=== PATIENT | male | born 1990 | race Caucasian/White ===

== ENCOUNTER 2018-01-13 01:25 | Emergency (ER) | payer OTHER ==
--- OUTSIDE RECORDS SUMMARY | 2018-01-13 01:40 | XMS REPORT ---
:1990 External Reference #:[id number] Author Organization [facility] Address [address] [place] [address] Phone [phone] Care Team Providers Name Role Phone Shakira Parkinson NP Primary Care Physician Unavailable Payers Type Date Identification Numbers Payment Provider Subscriber Medicaid Expires: Policy Number: [id number] Medicaid/Computer Michael Quinones 2013 Science Group Name: 1 [address] PayID: [id number] [place] [address] Health Maintenance Effective: Policy Number: [employer] Option Michael Rangel (HMO) 03/31/2013 [id number] Stacie Expires: 01/28/2014 PayID: [id number] [address] [address] [place] [address] Commercial Effective: 01/29/2014 Policy Number: [place] [facility]-Man Michael Quinones [id number] Medicaid PayID: [id number] [address] [place] [address] Problems Description No Information Social History Type Date Description Comments Education Highest level completed, 12th grade Education Highest level completed, completed job [employer] for Vocational Degree naldo Lives With Grandmother Diet Healthy, Well Balanced Pets 1 cat Pets 1 dog Occupation Unemployed Hobbies Hunting Hobbies Fishing Hobbies Computers Cigarette Use Former Cigarette Smoker ETOH Use Rarely consumes alcohol Recreational Drug Use Regularly uses Marijuana Smoking Patient is a former smoker Daily Caffeine Does Not Consume Caffeine Enjoy Exercising Enjoys exercising no regular exercise Allergies, Adverse Reactions, Alerts Date Description Reaction Status Severity Comments 03/02/2013 NKDA active Medications Medication Date Status Form Strength Qnty SIG Indications Ordering Provider Vitamin D 12/26/ Active Capsules [id number] 8caps take 1 Shawnti R. 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 Guaifenesin-Co 01/22/ Hx Syrup 100-10mg/5 180ml 1-2 J06.9 Shakira goff 2015 - ML teaspoon , 09/13/ by mouth [facility]-C 2015 every 6 hours as needed cough Ibuprofen 06/04/ Hx Tablets 600mg 60tabs 1 three 799.51 Shakira Sheppard 2012 - times a , 09/13/ day as [facility]-C 2015 needed pain, take with food Focalin XR 03/02/ Hx Caps ER 15mg 90caps 1 po daily Shakira Sheppard 2012 - 24HR code b 09/13/ [facility]-C 2015 Medications Administered in Office Medication Date Status Form Strength Qnty SIG Indications Ordering Provider Varicella Administered Injection Shakira Sheppard Disease 995 [facility] Immunizations CPT Code Status Date Vaccine Lot # [id number] Given 03/19/2016 Tdap (Adacel) 52666 Given 11/30/2011 Menactra (meningococcal conjugate vaccine) 85610 Given 09/28/2007 Menactra (meningococcal conjugate vaccine) 20091 Given 03/03/2006 Tdap (Adacel) 06279 Given 04/10/1998 Inactivated Polio Vaccine, Injectable (Ipol) 72376 Given 04/10/1998 MMR (Measles,Mumps,Rubella) 40955 Given 04/10/1998 DTaP (Daptacel) 43394 Given 04/20/1994 DTaP (Daptacel) 93698 Given 04/20/1994 Inactivated Polio Vaccine, Injectable (Ipol) 30809 Given 02/12/1994 Hib (Hemophilus Influenza B) (Acthib) 10830 Given 02/12/1994 MMR (Measles,Mumps,Rubella) 69074 Given 11/30/1993 Hep B Vaccine, Ped/Adol Dose 3 Dose (Engerix or Recombivax) 57603 Given 05/13/1993 DTaP (Daptacel) 97637 Given 05/13/1993 Hib (Hemophilus Influenza B) (Acthib) 96739 Given 03/27/1993 Inactivated Polio Vaccine, Injectable (Ipol) 77209 Given 03/27/1993 DTaP (Daptacel) 34188 Given 03/27/1993 Hib (Hemophilus Influenza B) (Acthib) 54081 Given 01/14/1993 Hep B Vaccine, Ped/Adol Dose 3 Dose (Engerix or Recombivax) 78884 Given 01/14/1993 Inactivated Polio Vaccine, Injectable (Ipol) 57823 Given 01/14/1993 DTaP (Daptacel) 00328 Given 01/14/1993 Hib (Hemophilus Influenza B) (Acthib) 14543 Given 1992 Hep B Vaccine, Ped/Adol Dose 3 Dose (Engerix or Recombivax) 06828 Refused 12/26/2017 Influenza Virus Vaccine, Quadrivalent, 3 Yr > Quad, Preserv Free 45538 Refused 10/17/2017 HPV Vaccine, Gardasil 56886 Refused 10/17/2017 Influenza Virus Vaccine, Quadrivalent, 3 Yr > Quad, Preserv Free 19527 Refused 01/23/2016 Influenza Virus Vaccine, Quadrivalent, 3 Yr > Quad, Preserv Free Vital Signs Date Vital Result Comment 12/26/2017 Weight 248.00 lb Weight in kg's 112.493 BP Systolic 117 mmHg BP Diastolic 79 mmHg Heart Rate 88 /min Body Temperature 97.5 F Height 73 inches 6'1" BMI (Body Mass Index) 32.7 kg/m2 O2 % BldC Oximetry 98 % 10/17/2017 Weight 249.00 lb Weight in kg's 112.946 BP Systolic 128 mmHg BP Diastolic 70 mmHg Heart Rate 72 /min Body Temperature 98.5 F Respiratory Rate 16 /min O2 % BldC Oximetry 98 % 09/07/2017 Weight 248.00 lb Weight in kg's 112.493 BP Systolic 120 mmHg BP Diastolic 68 mmHg Heart Rate 80 /min Body Temperature 98.2 F O2 % BldC Oximetry 98 % 10/14/2016 Weight 239.00 lb Weight in kg's 108.410 BP Systolic 120 mmHg BP Diastolic 60 mmHg Heart Rate 80 /min 09/13/2016 Weight 240.00 lb Weight in kg's 108.864 BP Systolic 110 mmHg BP Diastolic 70 mmHg Heart Rate 52 /min Body Temperature 98.6 F Respiratory Rate 12 /min 03/22/2016 Weight 250.00 lb Weight in kg's 113.400 BP Systolic 130 mmHg BP Diastolic 65 mmHg Heart Rate 90 /min O2 % BldC Oximetry 97 % 01/23/2016 Weight 246.00 lb Weight in kg's 111.586 BP Systolic 106 mmHg BP Diastolic 72 mmHg Heart Rate 88 /min Body Temperature 98.2 F O2 % BldC Oximetry 96 % 04/28/2015 Weight 260.00 lb Weight in kg's 117.936 BP Systolic 114 mmHg BP Diastolic 70 mmHg Heart Rate 68 /min Height 73.5 inches 6'1.50" BMI (Body Mass Index) 33.8 kg/m2 04/26/2014 Weight 239.00 lb Weight in kg's 108.410 BP Systolic 106 mmHg BP Diastolic 66 mmHg Heart Rate 76 /min Height 73.25 inches 6'1.25" BMI (Body Mass Index) 31.3 kg/m2 06/04/2013 Weight 224.00 lb Weight in kg's 101.606 BP Systolic 130 mmHg BP Diastolic 64 mmHg Heart Rate 80 /min Height 73.5 inches 6'1.50" BMI (Body Mass Index) 29.1 kg/m2 03/02/2013 Weight 228.00 lb Weight in kg's 103.421 BP Systolic 128 mmHg BP Diastolic 68 mmHg Heart Rate 90 /min Height 73.50 inches 6'1.50" BMI (Body Mass Index) 29.7 kg/m2 Results Test Date Test Result H/L Range Note Order 12/26/2017 EKG <pending> Laboratory test 10/17/2017 TSH (Thyroid 2.49 mcIU/mL 0.34-5.60 1 finding Stim Horm) Vitamin B12 448 pg/mL 180-914 2 Vitamin D Total 25(Oh) 14.3 ng/mL Low 20-50 3 Adrenal 21-Hydroxylase <1 U/mL <1 4 CBC Auto Diff 10/17/2017 White Blood Count 10.9 10^3/uL High 3.5-10.8 Red Blood Count 5.03 10^6/uL 4.0-5.4 Hemoglobin 15.5 g/dL 14.0-18.0 Hematocrit 46 % 42-52 Mean Corpuscular Volume 92 fL 80-94 Mean Corpuscular Hemoglobin 31 pg 27-31 Mean Corpuscular HGB Conc 34 g/dL 31-36 Red Cell Distribution Width 13 % 10.5-15 Platelet Count 246 10^3/uL 150-450 Mean Platelet Volume 10 um3 7.4-10.4 Abs Neutrophils 7.0 10^3/uL 1.5-7.7 Abs Lymphocytes 2.9 10^3/uL 1.0-4.8 Abs Monocytes 0.7 10^3/uL 0-0.8 Abs Eosinophils 0.1 10^3/uL 0-0.6 Abs Basophils 0.1 10^3/uL 0-0.2 Abs Nucleated RBC 0 10^3/uL Granulocyte % 64.8 % 38-83 Lymphocyte % 26.4 % 25-47 Monocyte % 6.9 % 1-9 Eosinophil % 1.3 % 0-6 Basophil % 0.6 % 0-2 Nucleated Red Blood Cells % 0 Lipid Profile (Trig/Chol/HDL) 10/17/2017 Triglycerides 214 mg/dL 5 Cholesterol 190 mg/dL 6 HDL Cholesterol 28.2 mg/dL 7 LDL Cholesterol 119 mg/dL 8 Comp Metabolic Panel 10/17/2017 Sodium 137 mmol/L 133-145 Potassium 4.3 mmol/L 3.5-5.0 Chloride 103 mmol/L 101-111 Co2 Carbon Dioxide 26 mmol/L 22-32 Anion Gap 8 mmol/L 2-11 Glucose 81 mg/dL 70-100 Blood Urea Nitrogen 14 mg/dL 6-24 Creatinine 0.83 mg/dL 0.67-1.17 BUN/Creatinine Ratio 16.9 8-20 Calcium 9.8 mg/dL 8.6-10.3 Total Protein 7.1 g/dL 6.4-8.9 Albumin 4.6 g/dL 3.2-5.2 Globulin 2.5 g/dL 2-4 Albumin/Globulin Ratio 1.8 1-3 Total Bilirubin 0.40 mg/dL 0.2-1.0 Alkaline Phosphatase 125 U/L High 34-104 Alt 54 U/L High 7-52 Ast 22 U/L 13-39 Egfr Non- 113.8 >60 Egfr 146.4 >60 9 Laboratory test finding 09/07/2017 Strep Screen Neg Neg Flu Test A, B, Or A & B,Binaxn 09/07/2017 Influenza A Antigen neg Influenza B Antigen neg 1 [id number] 2 Normal Range 180 to 914 Indeterminate Range 145 to 180 Deficient Range <145 3 [id number] 4 Test Performed by: [facility] [address] [place] [address] 5 Desirable: <150 Borderline High: 150-199 High: 200-499 Very High: >500 6 Desirable: <200 Borderline High: 200-239 High: >239 7 Low: <40 Desirable: 40-60 High: >60 8 Desirable: <100 Near Optimal: 100-129 Borderline High: 130-159 High: 160-189 Very High: >189 9 Because ethnic data is not always readily available, this report includes an eGFR for both -Americans and non- Americans. The National Kidney Disease Education Program (NKDEP) does not endorse the use of the MDRD equation for patients that are not between the ages of 18 and 70, are , have extremes of body size, muscle mass, or nutritional status, or are non- or non-. According to the National Kidney Foundation, irrespective of diagnosis, the stage of the disease is based on the level of kidney function: Stage Description GFR(mL/min/1.73 m(2)) 1 Kidney damage with normal or decreased GFR 90 2 Kidney damage with mild decrease in GFR 60-89 3 Moderate decrease in GFR 30-59 4 Severe decrease in GFR 15-29 5 Kidney failure <15 (or dialysis) Procedures Date CPT Code Description Status 12/26/2017 29029 EKG, at Least 12 Leads w/Interpretation and Report Completed Encounters Type Date Location Provider CPT E/M Dx Office Visit 10/17/2017 1:30p Main Office Mine Smith, HARDEEP [address]157 Z00.00 Z13.6 R41.840 M25.561 Office Visit 09/07/2017 11:45a Main Office Bhanu Walker M.D. 42321 J06.9 Office Visit 10/14/2016 2:30p Main Office Shakira Parkinson [facility] 86474 F90.0 J30.9 Office Visit 09/13/2016 11:30a Main Office Shakira Parkinson, [facility]-C 86061 F90.0 Office Visit 03/22/2016 3:30p Main Office Shakira Parkinson [facility] 31452 S66.011D S20.219D Office Visit 01/23/2016 11:30a Main Office Shakira Parkinson [facility] 95347 F90.0 J06.9 Office Visit 04/28/2015 11:00a Main Office Shakira Parkinson [facility] 38054 V70.0 Office Visit 04/26/2014 1:30p Main Office Shakira Parkinson, [facility]-C 10276 V70.0 314.00 Office Visit 06/04/2013 2:30p Main Office Shakira Parkinson, [facility]C 50763 799.51 724.5 Office Visit 03/02/2013 9:00a Main Office Shakira Parkinson [facility] 62812 V70.0 799.51 Plan of Care Future Appointment(s):01/23/2018 4:15 pm - Shakira Parkinson [facility] at Main [facility]12/26/2017 - ANA Monae-CR07.9 Chest pain, unspecifiedComments: normal EKG, reports of transient chest pain with tachycardia, will refer to cardiology for further evaluationFollow up:refer to [id number] Paroxysmal tachycardia, widnaavwofoZ75.9 Vitamin D deficiency, unspecifiedComments:will treat with high dose vitamin D, Hopefully this will improve his joint pains.Follow up:1 month
[2018-01-13] MEDS ORDERED: Aspirin TAB* 325 MG PO ONE (02:42)
[2018-01-13] MEDS ORDERED: Ketorolac INJ* 30 MG/ML 1 ML VIAL IM ONE (02:42)
[2018-01-13 04:00] LABS: ABS Basophils 0.1 10^3/ul (0-0.2); ABS Eosinophils 0.2 10^3/ul (0-0.6); ABS Monocytes 0.8 10^3/ul (0-0.8); ABS Neutrophils 5.8 10^3/ul (1.5-7.7); ABS Nucleated RBC 0 10^3/ul; Eosinophil % 1.6 % (0-6); Hematocrit 46 % (42-52); Hemoglobin 15.8 g/dl (14.0-18.0); Lymphocyte % 36.6 % (25-47); Mean Corpuscular HGB Conc 34 g/dl (31-36); Mean Corpuscular Hemoglobin 31 pg (27-31); Mean Corpuscular Volume 91 fL (80-94); Mean Platelet Volume 10 um3 (7.4-10.4); Nucleated Red Blood Cells % 0.1; Platelet Count 237 10^3/ul (150-450); Red Blood Count 5.08 10^6/ul (4.0-5.4); Red Cell Distribution Width 13 % (10.5-15); White Blood Count 10.8 10^3/ul (3.5-10.8)
[2018-01-13 04:16] LABS: EGFR Non-African American 108.4 (>60)
[2018-01-13 05:11] VITALS: BP 138/71
--- NOTE | 2018-01-13 07:32 | ED ---
Yina Garibay Gabriel, scribed for Mauri Roach MD on 01/13/18 at 0241 . HPI Chest Pain - HPI Summary HPI Summary: This patient is a 27 year old M presenting to [facility] accompanied by his mother with a chief complaint of CP that began 2 months ago but was worse at 1300 today. Pt states pain worsened with PT this afternoon, however he was able to complete PT with the pain. The patient rates the pain 6/10 in severity and states it radiates into his back and LUE. Symptoms aggravated by movement. Patient reports SOB. Patient denies nausea, light headedness, and dizziness. Pt has seen his PCP and has a cardiology appointment on 01-16-18. - History of Current Complaint Chief Complaint: EDChestPainROMI Time Seen by Provider: 01/13/18 02:15 Hx Obtained From: Patient Onset/Duration: Started Weeks Ago - 4 Timing: Constant Initial Severity: Moderate Current Severity: Moderate Pain Intensity: 6 Pain Scale Used: 0-10 Numeric Chest Pain Radiates: Yes Chest Pain Radiates To:: Back, Arm - left Aggravating Factor(s): Exertion, Movement Alleviating Factor(s): Nothing Associated Signs and Symptoms: Positive: Anxiety, Recent Stress, Tingling, Dizziness, Lightheadedness, Diaphoresis - Risk Factors Pulmonary Embolism Risk Factors: Negative - Allergy/Home Medications Allergies/Adverse Reactions: Allergies Allergy/AdvReac Type Severity Reaction Status Date / Time No Known Allergies Allergy Verified 01/13/18 01:35 PMH/Surg Hx/FS Hx/Imm Hx Endocrine/Hematology History: Denies: Hx Diabetes, Hx Thyroid Disease Cardiovascular History: Denies: Hx Hypercholesterolemia, Hx Hypertension, Hx Pacemaker/ICD, Hx Peripheral Vascular Disease Respiratory History: Denies: Hx Asthma History: Denies: Hx Renal Disease Musculoskeletal History: Denies: Hx Arthritis, Hx Rheumatoid Arthritis, Hx Osteoporosis Sensory History: Denies: Hx Cataracts, Hx Contacts or Glasses, Hx Glaucoma, Hx Hearing Aid Opthamlomology History: Denies: Hx Cataracts, Hx Contacts or Glasses, Hx Glaucoma Neurological History: Denies: Hx Headaches, Hx Seizures, Hx Transient Ischemic Attacks (TIA) Psychiatric History: Denies: Hx Anxiety, Hx Depression, Hx Panic Disorder - Surgical History Surgery Procedure, Year, and Place: RHINOPLASTY ; Infectious Disease History: No Infectious Disease History: Denies: Traveled Outside the [place] in Last 30 Days - Family History Known Family History: Positive: Cardiac Disease, Hypertension, Diabetes, Other - HLD - Social History Lives: With Family Alcohol Use: None Substance Use Type: Reports: None Smoking Status (MU): Never Smoked Tobacco Review of Systems Positive: Chest Pain Positive: Shortness Of Breath Negative: Nausea Neurological: Negative - dizziness and light headedness All Other Systems Reviewed And Are Negative: Yes Physical Exam - Summary Physical Exam Summary: Appearance: Well-appearing, no distress, Well-nourished Skin: Warm, color reflects adequate perfusion Head: Normal Head/Face inspection Eyes: Conjunctiva clear ENT: Normal inspection Neck: Supple, no nodes, no JVD. Respiratory: Lungs clear, Normal breath sounds, no respiratory distress Cardio: RRR, No murmur, pulses normal, brisk capillary refill Abdomen: soft, nontender, no guarding, no rebound Bowel sounds: present Musculoskeletal: Strength Intact/ ROM intact. No calf tenderness. No edema. reproducible, mid midsternal chest discomfort on palpation Neuro: Alert, muscle tone normal, facial symmetry, speech normal, sensory/motor intact Psychological: Normal Triage Information Reviewed: Yes Vital Signs On Initial Exam: Initial Vitals Temp Pulse Resp BP Pulse Ox 98.5 F 93 18 147/77 98 01/13/18 01:33 01/13/18 01:33 01/13/18 01:33 01/13/18 01:33 01/13/18 01:33 Vital Signs Reviewed: Yes Diagnostics - Vital Signs Vital Signs Temp Pulse Resp BP Pulse Ox 01/13/18 01:33 98.5 F 93 18 147/77 98 - Laboratory Lab Results: Lab Results 01/13/18 01/13/18 01/13/18 Range/Units 03:43 03:43 03:43 WBC 10.8 (3.5-10.8) 10^3/ul RBC 5.08 (4.0-5.4) 10^6/ul Hgb 15.8 (14.0-18.0) g/dl Hct 46 (42-52) % MCV 91 (80-94) fL MCH 31 (27-31) pg MCHC 34 (31-36) g/dl RDW 13 (10.5-15) % Plt Count 237 (150-450) 10^3/ul MPV 10 (7.4-10.4) um3 Neut % (Auto) 53.6 (38-83) % Lymph % (Auto) 36.6 (25-47) % [place] % (Auto) 7.6 H (0-7) % Eos % (Auto) 1.6 (0-6) % Baso % (Auto) 0.6 (0-2) % Absolute Neuts (auto) 5.8 (1.5-7.7) 10^3/ul Absolute Lymphs (auto) 4.0 (1.0-4.8) 10^3/ul Absolute Monos (auto) 0.8 (0-0.8) 10^3/ul Absolute Eos (auto) 0.2 (0-0.6) 10^3/ul Absolute Basos (auto) 0.1 (0-0.2) 10^3/ul Absolute Nucleated RBC 0 10^3/ul Nucleated RBC % 0.1 D-Dimer, Quantitative (Less Than 230) ng/mL Sodium 137 (133-145) mmol/L Potassium 3.7 (3.5-5.0) mmol/L Chloride 101 (101-111) mmol/L Carbon Dioxide 27 (22-32) mmol/L Anion Gap 9 (2-11) mmol/L BUN 15 (6-24) mg/dL Creatinine 0.86 (0.67-1.17) mg/dL Est GFR ( Amer) 139.3 (>60) Est GFR (Non-Af Amer) 108.4 (>60) BUN/Creatinine Ratio 17.4 (8-20) Glucose 83 (70-100) mg/dL Calcium 10.2 (8.6-10.3) mg/dL Total Bilirubin 0.50 (0.2-1.0) mg/dL AST 22 (13-39) U/L ALT 55 H (7-52) U/L Alkaline Phosphatase 97 (34-104) U/L Troponin I 0.00 (<0.04) ng/mL B-Natriuretic Peptide 7 ( - 100) pg/mL Total Protein 7.7 (6.4-8.9) g/dL Albumin 4.9 (3.2-5.2) g/dL Globulin 2.8 (2-4) g/dL Albumin/Globulin Ratio 1.8 (1-3) 01/13/18 Range/Units 03:43 WBC (3.5-10.8) 10^3/ul RBC (4.0-5.4) 10^6/ul Hgb (14.0-18.0) g/dl Hct (42-52) % MCV (80-94) fL MCH (27-31) pg MCHC (31-36) g/dl RDW (10.5-15) % Plt Count (150-450) 10^3/ul MPV (7.4-10.4) um3 Neut % (Auto) (38-83) % Lymph % (Auto) (25-47) % [place] % (Auto) (0-7) % Eos % (Auto) (0-6) % Baso % (Auto) (0-2) % Absolute Neuts (auto) (1.5-7.7) 10^3/ul Absolute Lymphs (auto) (1.0-4.8) 10^3/ul Absolute Monos (auto) (0-0.8) 10^3/ul Absolute Eos (auto) (0-0.6) 10^3/ul Absolute Basos (auto) (0-0.2) 10^3/ul Absolute Nucleated RBC 10^3/ul Nucleated RBC % D-Dimer, Quantitative < 200 (Less Than 230) ng/mL Sodium (133-145) mmol/L Potassium (3.5-5.0) mmol/L Chloride (101-111) mmol/L Carbon Dioxide (22-32) mmol/L Anion Gap (2-11) mmol/L BUN (6-24) mg/dL Creatinine (0.67-1.17) mg/dL Est GFR ( Amer) (>60) Est GFR (Non-Af Amer) (>60) BUN/Creatinine Ratio (8-20) Glucose (70-100) mg/dL Calcium (8.6-10.3) mg/dL Total Bilirubin (0.2-1.0) mg/dL AST (13-39) U/L ALT (7-52) U/L Alkaline Phosphatase (34-104) U/L Troponin I (<0.04) ng/mL B-Natriuretic Peptide ( - 100) pg/mL Total Protein (6.4-8.9) g/dL Albumin (3.2-5.2) g/dL Globulin (2-4) g/dL Albumin/Globulin Ratio (1-3) Result Diagrams: 01/13/18 03:43 01/13/18 03:43 Lab Statement: Any lab studies that have been ordered have been reviewed, and results considered in the medical decision making process. - Radiology CXR Radiology Interpretation Completed By: ED Physician - No acute cardiopulmonary process - EKG 0123 Cardiac Rate: NL EKG Rhythm: Sinus Rhythm - at 75 BPM EKG Interpretation: normal intervals, normal axis, T wave normal, no ST/T wave changes Re-Evaluation - Re-Evaluation First Eval Change: Improved - Pt chest pain resolved. pt resting comfortably in bed. Pt HEART score - 0; pt symptoms atypical in nature. Chest Pain Course/Dx - Chest Pain Differential Diagnosis/HQI/PQRI: Acute [place], ACS, Angina, CHF, Lower Respiratory Infection, Pulmonary Edema, Pulmonary Embolism - Diagnoses Provider Diagnoses: Atypical chest pain Discharge - Discharge Plan Condition: Improved Disposition: HOME Prescriptions: Ketorolac TAB * [Toradol TAB *] 10 mg PO Q6H PRN 3 Days #10 tab PRN Reason: Pain Patient Education Materials: Chest Pain (ED) Referrals: Shakira Parkinson, [facility] [Primary Care Provider] - 2 Days Additional Instructions: Please follow up at your Cardiology appointment as scheduled. The documentation as recorded by the Yina gann Gabriel accurately reflects the service I personally performed and the decisions made by , Mauri Roach MD.
--- NOTE | 2018-01-13 08:16 | RAD ---
INDICATION: Chest pain. COMPARISON: There are no prior studies available for comparison. TECHNIQUE: Dual-energy PA and lateral views of the chest were obtained. FINDINGS: The heart is within normal limits in size. Mediastinal and hilar contours appear within normal limits. The lungs are clear. No pleural effusion or pneumothorax is seen. IMPRESSION: NO EVIDENCE FOR ACTIVE CARDIOPULMONARY DISEASE.
== END 2018-01-13 05:08 | disposition home or self-care (01) ==
LOC: ED 01:25
DX: R07.89 Other chest pain (principal); R06.02 Shortness of breath; R42 Dizziness and giddiness
CPT/HCPCS: 36415; 71046; 80053; 83880; 84484; 85025; 85379; 93005; 96372; 99284; J1885

== ENCOUNTER → 2019-03-22 16:17 | Emergency (ER) | payer OTHER ==
--- NOTE | 2019-03-22 17:40 | ED ---
Skin Complaint - HPI Summary HPI Summary: 28-year-old male presents with rash to his abdomen. States he was at work prior to arrival and felt a burning sensation to his abdomen and when he checked he noticed a rash. 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 Denies fever , chills, swelling of the lips, tongue, or throat, difficulty breathing, changes in soaps, detergents, lotions, medications, diet, or any known contact with environmental irritants. - History of Current Complaint Chief Complaint: EDRashSkinAbscess Time Seen by Provider: 03/22/19 17:30 Stated Complaint: "RASH ON ABDOMEN PER PT" Hx Obtained From: Patient Pain Intensity: 6 - Allergy/Home Medications Allergies/Adverse Reactions: Allergies Allergy/AdvReac Type Severity Reaction Status Date / Time No Known Allergies Allergy Verified 03/22/19 16:24 PMH/Surg Hx/FS Hx/Imm Hx Previously Healthy: Yes - Denies significant PMH Endocrine/Hematology History: Denies: Hx Diabetes, Hx Thyroid Disease Cardiovascular History: Denies: Hx Hypercholesterolemia, Hx Hypertension, Hx Pacemaker/ICD, Hx Peripheral Vascular Disease Respiratory History: Denies: Hx Asthma History: Denies: Hx Renal Disease Musculoskeletal History: Denies: Hx Arthritis, Hx Rheumatoid Arthritis, Hx Osteoporosis Sensory History: Denies: Hx Cataracts, Hx Contacts or Glasses, Hx Glaucoma, Hx Hearing Aid Opthamlomology History: Denies: Hx Cataracts, Hx Contacts or Glasses, Hx Glaucoma Neurological History: Denies: Hx Headaches, Hx Seizures, Hx Transient Ischemic Attacks (TIA) Psychiatric History: Denies: Hx Anxiety, Hx Depression, Hx Panic Disorder - Surgical History Surgery Procedure, Year, and Place: RHINOPLASTY ; Infectious Disease History: No Infectious Disease History: Denies: Traveled Outside the [place] in Last 30 Days - Family History Known Family History: Positive: Cardiac Disease, Hypertension, Diabetes, Other - HLD - Social History Occupation: Unemployed Lives: With Family Alcohol Use: None Substance Use Type: Reports: None Smoking Status (MU): Never Smoked Tobacco Review of Systems Negative: Fever, Chills Cardiovascular: Negative Respiratory: Negative Gastrointestinal: Negative Genitourinary: Negative Musculoskeletal: Negative Positive: Rash - See HPI All Other Systems Reviewed And Are Negative: Yes Physical Exam - Summary Physical Exam Summary: GENERAL APPEARANCE: Well developed, well nourished, alert and cooperative, and appears to be in no acute distress. CARDIAC: Normal S1 and S2. No S3, S4 or murmurs. Rhythm is regular. There is no peripheral edema, cyanosis or pallor. Extremities are warm and well perfused. Capillary refill is less than 2 seconds. Peripheral pulses intact. LUNGS: Clear to auscultation without rales, rhonchi, wheezing or diminished breath sounds. ABDOMEN: Positive bowel sounds. Soft, nondistended, nontender. No guarding or rebound. No masses or hepatosplenomegally. MUSKULOSKELETAL: ROM intact to all extremities. No joint erythema or tenderness. Normal muscular development. Normal gait. SKIN: Maculaopapular rash localized to the mid lower abdomen. Triage Information Reviewed: Yes Vital Signs On Initial Exam: Initial Vitals Temp Pulse Resp BP Pulse Ox 98.1 F 94 18 145/75 95 03/22/19 16:22 03/22/19 16:22 03/22/19 16:22 03/22/19 16:22 03/22/19 16:22 Vital Signs Reviewed: Yes Diagnostics - Vital Signs Vital Signs Temp Pulse Resp BP Pulse Ox 03/22/19 16:22 98.1 F 94 18 145/75 95 - Laboratory Lab Statement: Any lab studies that have been ordered have been reviewed, and results considered in the medical decision making process. Course/Dx - Course Course Of Treatment: 28-year-old male presents with rash to his abdomen. States he was at work prior to arrival and felt a burning sensation to his abdomen and when he checked he noticed a rash. 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 Denies fever, chills, swelling of the lips, tongue, or throat, difficulty breathing, changes in soaps, detergents, lotions, medications, diet, or any known contact with environmental irritants. Afebrile. Vital signs stable. Patient has a macular papular rash localized to his mid lower abdomen and otherwise unremarkable exam. Recommending treatment for a contact dermatitis with clobetasol ointment twice a day until clear. He is to follow- up with his primary care provider in 3-5 days if symptoms are not improving. Anticipatory guidance and warning symptoms were reviewed with the patient. Verbalizes understanding and agrees with plan of care. - Differential Diagnoses - Skin Complaint Differential Diagnoses: Cellulitis, Contact Dermatitis, Drug Rash, Local Allergic Reaction, Tinea - Diagnoses Provider Diagnoses: Contact dermatitis Discharge - Sign-Out/Discharge Documenting (check all that apply): Patient Departure Patient Received Moderate/Deep Sedation with Procedure: No - Discharge Plan Condition: Stable Disposition: HOME Prescriptions: Clobetasol 0.05% OINT* 1 applic TOPICAL BID #1 tube Patient Education Materials: Contact Dermatitis (ED) Forms: *Work Release Referrals: Shakira Parkinson NP [Primary Care Provider] - 3 Days Additional Instructions: Your history and exam are consistent with a contact dermatitis. Use clobetasol ointment twice a day to the affected area until clear. Do not use for more than 2 weeks. Follow up with your primary care provider in 3-5 days if no improvement in symptoms. Return to the emergency room if you develop fever greater than 100.5 F, swelling of the lips, tongue, or throat, difficulty breathing, or any worsening of symptoms. - Billing Disposition and Condition Condition: STABLE Disposition: Home
[2019-03-22 18:11] VITALS: BP 138/70
== END | disposition home or self-care (01) ==
LOC: ED 16:17
DX: L25.9 Unspecified contact dermatitis, unspecified cause (principal)
CPT/HCPCS: 99282

== ENCOUNTER 2019-04-04 13:59 | Emergency (ER) | payer OTHER ==
--- OUTSIDE RECORDS SUMMARY | 2019-04-04 14:11 | XMS REPORT | Continuity of Care Document ---
:1990 External Reference #:[id number] Author Name Rain Mclaughlin Care Team Providers Name Role Phone AB Monae Care Team Information Drugless Doctor Unavailable Payers Date Identification Numbers Payment Provider Subscriber Expires: 2013 Policy Number: [id number] Medicaid/[employer] Michael Quinones Group Name: 1 [address] PayID: [id number] [place] [address] Effective: 2013 Policy Number: [id number] [employer] Michael Quinones Expires: 2014 PayID: [id number] [address] [address] [place] [address] Effective: 2014 Policy Number: [id number] [facility] Michael Quinones Medicaid PayID: [id number] [address] [place] [address] Social History Type Date Description Comments Sex Unknown Education Highest level completed, 12th grade Education Highest level completed job geoffrey completed, Vocational for [employer] Degree Lives With Grandmother Diet Healthy, Well Balanced Pets 1 cat Pets 1 dog Occupation Unemployed Hobbies Hunting Hobbies Fishing Hobbies [employer] Tobacco Use Start: Unknown End: Former Cigarette Smoker Unknown ETOH Use Rarely consumes alcohol Recreational Drug Use Regularly uses Marijuana Tobacco Use Start: Unknown End: Patient is a former Unknown smoker Smoking Status Reviewed: 10/17/17 Patient is a former smoker Enjoy Exercising Enjoys exercising no regular exercise Allergies, Adverse Reactions, Alerts Description No Known Drug Allergies Medications Active Medications SIG Qnty Indications Ordering Provider Date Amoxicillin 1 by mouth twice 20tabs J01.90 Magdalena Gaitan, 07/22/2018 875mg a day M.D., R.D. Tablets Vitamin D take 1 capsule by 8caps Shakira Parkinson, 12/26/2017 (Ergocalciferol) mouth twice ANA-Fitz weekly for 4 [id number] Capsules weeks Ibuprofen 1 tab two times a 60tabs R41.840 Minecarter Hilliard, 10/17/2017 600mg Tablets day as for needed DIRECTOR OF INSTRUCTION pain, take with food Cetirizine HCL 1 by mouth every 90tabs J30.9 Shakira Parkinson, 10/14/2016 10mg day SPINNING B[employer] PERSON-C Tablets Bupropion HCL ER (SR) 1 by mouth twice 60tabs F90.0 [facility] [place], a day DIRECTOR OF INSTRUCTION 150mg Tablets ER 12HR History Medications Silver Sulfadiazine Apply Thin 50gm S20.219D Shakira Sheppard 03/22/2016 - Coating To ANA Parkinson-C 09/13/2016 1% Cream Abrasion Twice Daily Until Healed. Guaifenesin-Codeine 1-2 teaspoon by 180ml J06.9 Shakira Sheppard 01/23/2016 - mouth every 6 NICOLAS ParkinsonP-C 09/13/2016 100-10mg/5ML Syrup hours as needed cough Ibuprofen 1 three times a 60tabs 799.51 Shakira Sheppard 06/04/2013 - 600mg day as needed ANA Parkinson-C 09/13/2016 Tablets pain, take with food Focalin XR 1 po daily code 90caps Shakira Sheppard 03/02/2013 - 15mg Caps b ANA Parkinson-Fitz 09/13/2016 ER 24HR Medications Administered in Office Medication SIG Qnty Indications Ordering Provider Date Varicella Disease AB Monae 03/02/1995 Injection Immunizations CPT Code Status Date Vaccine Lot # [id number] Given 03/19/2016 Tdap (Adacel) 10732 Given 11/30/2011 Menactra (meningococcal conjugate vaccine) 97110 Given 09/28/2007 Menactra (meningococcal conjugate vaccine) 20067 Given 03/03/2006 Tdap (Adacel) 23197 Given 04/10/1998 Inactivated Polio Vaccine, Injectable (Ipol) 77967 Given 04/10/1998 MMR (Measles,Mumps,Rubella) 03331 Given 04/10/1998 DTaP (Daptacel) 87379 Given 04/20/1994 DTaP (Daptacel) 32557 Given 04/20/1994 Inactivated Polio Vaccine, Injectable (Ipol) 16836 Given 02/12/1994 Hib (Hemophilus Influenza B) (Acthib) 44620 Given 02/12/1994 MMR (Measles,Mumps,Rubella) 01091 Given 11/30/1993 Hep B Vaccine, Ped/Adol Dose 3 Dose (Engerix or Recombivax) 42435 Given 05/13/1993 DTaP (Daptacel) 50102 Given 05/13/1993 Hib (Hemophilus Influenza B) (Acthib) 51924 Given 03/27/1993 Inactivated Polio Vaccine, Injectable (Ipol) 06714 Given 03/27/1993 DTaP (Daptacel) 51547 Given 03/27/1993 Hib (Hemophilus Influenza B) (Acthib) 50459 Given 01/14/1993 Hep B Vaccine, Ped/Adol Dose 3 Dose (Engerix or Recombivax) 82967 Given 01/14/1993 Inactivated Polio Vaccine, Injectable (Ipol) 32434 Given 01/14/1993 DTaP (Daptacel) 42465 Given 01/14/1993 Hib (Hemophilus Influenza B) (Acthib) 28417 Given 1992 Hep B Vaccine, Ped/Adol Dose 3 Dose (Engerix or Recombivax) 70071 Refused 12/26/2017 Influenza Virus Vaccine, Quadrivalent, 3 Yr > Quad , Preserv Free 53772 Refused 10/17/2017 HPV Vaccine, Gardasil 57778 Refused 10/17/2017 Influenza Virus Vaccine, Quadrivalent, 3 Yr > Quad , Preserv Free 34784 Refused 01/23/2016 Influenza Virus Vaccine, Quadrivalent, 3 Yr > Quad , Preserv Free Vital Signs Date Vital Result Comment 07/22/2018 11:45am Weight 255.00 lb Weight 115.668 kg BP Systolic 100 mmHg BP Diastolic 68 mmHg Heart Rate 78 /min Body Temperature 98.4 F Respiratory Rate 16 /min O2 % BldC Oximetry 95 % 01/26/2018 2:58pm Weight 252.00 lb Weight 114.307 kg BP Systolic 122 mmHg BP Diastolic 70 mmHg Heart Rate 72 /min Body Temperature 98.0 F Respiratory Rate 16 /min Height 73 inches 6'1" BMI (Body Mass Index) 33.2 kg/m2 O2 % BldC Oximetry 98 % 12/26/2017 3:49pm Weight 248.00 lb Weight 112.493 kg BP Systolic 117 mmHg BP Diastolic 79 mmHg Heart Rate 88 /min Body Temperature 97.5 F Height 73 inches 6'1" BMI (Body Mass Index) 32.7 kg/m2 O2 % BldC Oximetry 98 % 10/17/2017 1:26pm Weight 249.00 lb Weight 112.946 kg BP Systolic 128 mmHg BP Diastolic 70 mmHg Heart Rate 72 /min Body Temperature 98.5 F Respiratory Rate 16 /min O2 % BldC Oximetry 98 % 09/07/2017 12:11pm Weight 248.00 lb Weight 112.493 kg BP Systolic 120 mmHg BP Diastolic 68 mmHg Heart Rate 80 /min Body Temperature 98.2 F O2 % BldC Oximetry 98 % 10/14/2016 2:34pm Weight 239.00 lb Weight 108.410 kg BP Systolic 120 mmHg BP Diastolic 60 mmHg Heart Rate 80 /min 09/13/2016 12:02pm Weight 240.00 lb Weight 108.864 kg BP Systolic 110 mmHg BP Diastolic 70 mmHg Heart Rate 52 /min Body Temperature 98.6 F Respiratory Rate 12 /min 03/22/2016 3:32pm Weight 250.00 lb Weight 113.400 kg BP Systolic 130 mmHg BP Diastolic 65 mmHg Heart Rate 90 /min O2 % BldC Oximetry 97 % 01/23/2016 11:22am Weight 246.00 lb Weight 111.586 kg BP Systolic 106 mmHg BP Diastolic 72 mmHg Heart Rate 88 /min Body Temperature 98.2 F O2 % BldC Oximetry 96 % 04/28/2015 10:50am Weight 260.00 lb Weight 117.936 kg BP Systolic 114 mmHg BP Diastolic 70 mmHg Heart Rate 68 /min Height 73.5 inches 6'1.50" BMI (Body Mass Index) 33.8 kg/m2 04/26/2014 1:38pm Weight 239.00 lb Weight 108.410 kg BP Systolic 106 mmHg BP Diastolic 66 mmHg Heart Rate 76 /min Height 73.25 inches 6'1.25" BMI (Body Mass Index) 31.3 kg/m2 06/04/2013 2:36pm Weight 224.00 lb Weight 101.606 kg BP Systolic 130 mmHg BP Diastolic 64 mmHg Heart Rate 80 /min Height 73.5 inches 6'1.50" BMI (Body Mass Index) 29.1 kg/m2 03/02/2013 9:01am Weight 228.00 lb Weight 103.421 kg BP Systolic 128 mmHg BP Diastolic 68 mmHg Heart Rate 90 /min Height 73.50 inches 6'1.50" BMI (Body Mass Index) 29.7 kg/m2 Results Test Date Facility Test Result H/L Range Note CBC Auto 01/13/2018 [facility] White Blood 10.8 10^3/ uL N 3.5-10.8 Diff [phone] Count Red Blood Count 5.08 10^6/uL N 4.0-5.4 Hemoglobin 15.8 g/dL N 14.0-18.0 Hematocrit 46 % N 42-52 Mean Corpuscular Volume 91 fL N 80-94 Mean Corpuscular Hemoglobin 31 pg N 27-31 Mean Corpuscular HGB Conc 34 g/dL N 31-36 Red Cell Distribution Width 13 % N 10.5-15 Platelet Count 237 10^3/uL N 150-450 Mean Platelet Volume 10 um3 N 7.4-10.4 Abs Neutrophils 5.8 10^3/uL N 1.5-7.7 Abs Lymphocytes 4.0 10^3/uL N 1.0-4.8 Abs Monocytes 0.8 10^3/uL N 0-0.8 Abs Eosinophils 0.2 10^3/uL N 0-0.6 Abs Basophils 0.1 10^3/uL N 0-0.2 Abs Nucleated RBC 0 10^3/uL Granulocyte % 53.6 % N 38-83 Lymphocyte % 36.6 % N 25-47 Monocyte % 7.6 % High 0-7 Eosinophil % 1.6 % N 0-6 Basophil % 0.6 % N 0-2 Nucleated Red Blood Cells % 0.1 Laboratory test 01/13/2018 [facility] D Dimer < 200 N Less Than 1 finding [phone] Quantitative ng/mL 230 Comp Metabolic 01/13/2018 [facility] Sodium 137 mmol/ L N 133-145 Panel [phone] Potassium 3.7 mmol/L N 3.5-5.0 Chloride 101 mmol/L N 101-111 Co2 Carbon Dioxide 27 mmol/L N 22-32 Anion Gap 9 mmol/L N 2-11 Glucose 83 mg/dL N 70-100 Blood Urea Nitrogen 15 mg/dL N 6-24 Creatinine 0.86 mg/dL N 0.67-1.17 BUN/Creatinine Ratio 17.4 N 8-20 Calcium 10.2 mg/dL N 8.6-10.3 Total Protein 7.7 g/dL N 6.4-8.9 Albumin 4.9 g/dL N 3.2-5.2 Globulin 2.8 g/dL N 2-4 Albumin/Globulin Ratio 1.8 N 1-3 Total Bilirubin 0.50 mg/dL N 0.2-1.0 Alkaline Phosphatase 97 U/L N 34-104 Alt 55 U/L High 7-52 Ast 22 U/L N 13-39 Egfr Non- 108.4 >60 Egfr 139.3 >60 2 Laboratory test 01/13/2018 [facility] Troponin-I (TnI ) 0.00 ng/mL <0.04 finding [phone] B-Type Natriuretic Peptide BNP 7 pg/mL 3 Order 12/26/2017 In Office EKG <pending> CBC Auto Diff 10/17/2017 [facility] White Blood 10.9 10^3/uL High 3.5-10.8 [phone] Count Red Blood Count 5.03 10^6/uL N 4.0-5.4 Hemoglobin 15.5 g/dL N 14.0-18.0 Hematocrit 46 % N 42-52 Mean Corpuscular Volume 92 fL N 80-94 Mean Corpuscular Hemoglobin 31 pg N 27-31 Mean Corpuscular HGB Conc 34 g/dL N 31-36 Red Cell Distribution Width 13 % N 10.5-15 Platelet Count 246 10^3/uL N 150-450 Mean Platelet Volume 10 um3 N 7.4-10.4 Abs Neutrophils 7.0 10^3/uL N 1.5-7.7 Abs Lymphocytes 2.9 10^3/uL N 1.0-4.8 Abs Monocytes 0.7 10^3/uL N 0-0.8 Abs Eosinophils 0.1 10^3/uL N 0-0.6 Abs Basophils 0.1 10^3/uL N 0-0.2 Abs Nucleated RBC 0 10^3/uL Granulocyte % 64.8 % N 38-83 Lymphocyte % 26.4 % N 25-47 Monocyte % 6.9 % N 1-9 Eosinophil % 1.3 % N 0-6 Basophil % 0.6 % N 0-2 Nucleated Red Blood Cells % 0 Comp Metabolic Panel 10/17/2017 [facility] Sodium 137 mmol/L N 133-145 [phone] Potassium 4.3 mmol/L N 3.5-5.0 Chloride 103 mmol/L N 101-111 Co2 Carbon Dioxide 26 mmol/L N 22-32 Anion Gap 8 mmol/L N 2-11 Glucose 81 mg/dL N 70-100 Blood Urea Nitrogen 14 mg/dL N 6-24 Creatinine 0.83 mg/dL N 0.67-1.17 BUN/Creatinine Ratio 16.9 N 8-20 Calcium 9.8 mg/dL N 8.6-10.3 Total Protein 7.1 g/dL N 6.4-8.9 Albumin 4.6 g/dL N 3.2-5.2 Globulin 2.5 g/dL N 2-4 Albumin/Globulin Ratio 1.8 N 1-3 Total Bilirubin 0.40 mg/dL N 0.2-1.0 Alkaline Phosphatase 125 U/L High 34-104 Alt 54 U/L High 7-52 Ast 22 U/L N 13-39 Egfr Non- 113.8 >60 Egfr 146.4 >60 4 Lipid Profile 10/17/2017 [facility] Triglycerides 214 mg/dL 5 (Trig/Chol/HDL) [phone] Cholesterol 190 mg/dL 6 HDL Cholesterol 28.2 mg/dL 7 LDL Cholesterol 119 mg/dL 8 Laboratory test 10/17/2017 [facility] TSH (Thyroid 2.49 mcIU/mL N 0.34-5.60 9 finding [phone] Stim Horm) Vitamin B12 448 pg/mL N 180-914 10 Vitamin D Total 25(Oh) 14.3 ng/mL Low 20-50 11 Adrenal 21-Hydroxylase <1 U/mL <1 12 Laboratory test finding 09/07/2017 In House Lab Strep Screen Neg Neg (607)- - Flu Test A, B, Or A & 09/07/2017 In House Lab Influenza A Antigen neg B,Lazaro (607)- - Influenza B Antigen neg 1 Please note: The following may produce a false positive D Dimer test: - Rheumatoid factor greater than 60 IU/ml - Plasma hemoglobin greater than 0.05 gm/dl - Bilirubin greater than 50 mg/dl - Lipids greater than 1000 mg/dl - FDP greater than 20 ug/ml 2 Because ethnic data is not always readily [...] 15-29 5 Kidney failure <15 (or dialysis) 3 >100 to <200 pg/mL: likely compensated congestive heart failure (CHF) 200 to 400 pg/mL: likely moderate CHF >400 pg/mL: likely moderate to severe CHF 4 Because ethnic data is not always readily [...] 15-29 5 Kidney failure <15 (or dialysis) 5 Desirable: <150 Borderline High: 150-199 High: 200-499 Very High: >500 6 Desirable: <200 Borderline High: 200-239 High: >239 7 Low: <40 Desirable: 40-60 High: >60 8 Desirable: <100 Near Optimal: 100-129 Borderline High: 130-159 High: 160-189 Very High: >189 9 [id number] Normal Range 180 to 914 Indeterminate Range 145 to 180 Deficient Range <145 11 [id number] 12 Test Performed by: [facility] [address] [place] [address] Procedures Date Code Description Status 12/26/2017 09214 EKG, at Least 12 Leads w/Interpretation and Report Completed Encounters Type Date Location Provider Dx Diagnosis Office Visit 07/22/2018 Main Office Magdalena Gaitan, J01.90 Acute sinusitis , 11:45a M.D., R.D. unspecified Office Visit 01/26/2018 Main Office Shakira Parkinson, E55.9 Vitamin D deficiency, 3:00p [employer]ERSON[employer] unspecified F32.89 Other specified depressive episodes R07.9 Chest pain, unspecified Office Visit 12/26/2017 4:00p Main Office Shakira Sheppard R07.9 Chest pain, Storm, [employer]ING [employer] PERSON[employer] unspecified I47.9 Paroxysmal tachycardia, unspecified E55.9 Vitamin D deficiency, unspecified Office Visit 10/17/2017 1:30p Main Office Mine Smith Z00.00 Encntr for DIRECTOR OF INSTRUCTION general adult medical exam w/o abnormal findings Z13.6 Encounter for screening for cardiovascular disorders R41.840 Attention and concentration deficit M25.561 Pain in right knee Office Visit 09/07/2017 11:45a Main Office Bhanu Walker J06.9 Acute upper M.D. 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 V70.0 Examination General Storm, [employer]ERSON[employer] Medical Routine AT Health Care Facility Office Visit 04/26/2014 1:30p Main Office Bambii R. V70.0 Examination General Storm, [employer]ERSON[employer] Medical Routine AT Health Care Facility 314.00 Attention Deficit Disorder W/O Mention Of Hyperactivity Office Visit 06/04/2013 2:30p Main Office Shakira R. 799.51 Attention Or Storm, [employer]ING [employer]ERSON[employer] Concentration Deficit 724.5 Backache Unspec Office Visit 03/02/2013 9:00a Main Office Milindnti R. V70.0 Examination General Storm, [employer]ERSON[employer] Medical Routine AT Health Care Facility 799.51 Attention Or Concentration Deficit Plan of Treatment 07/22/2018 - Magdalena Gaitan M.D., R.D.J01.90 Acute sinusitis, unspecifiedNew Medication:Amoxicillin 875 mg - 1 by mouth twice a day
[2019-04-04 15:47] VITALS: BP 121/76
--- NOTE | 2019-04-04 16:47 | ED ---
Lower Extremity - HPI Summary HPI Summary: Patient is a 28 her old male presenting to the ED with left fourth toe injury. He states he hit the fourth toe yesterday on some weights in a weight room. He denies any pain to the dorsum of the foot. Denies any pain otherwise. Currently endorsing a 4/10 pain, with 10/10 pain on palpation. He is endorsing discoloration to the toe. Denies any other symptoms at this time. Denies numbness or tingling. - History of Current Complaint Chief Complaint: EDExtremityLower Stated Complaint: LEFT FOOT TOE INJURY Time Seen by Provider: 04/04/19 14:58 Hx Obtained From: Patient Mechanism Of Injury: Blunt Trauma Onset of Pain: Hours Onset/Duration: Hours Severity Initially: Moderate Severity Currently: Moderate Pain Intensity: 1 Pain Scale Used: 0-10 Numeric Timing: Constant Location: Is Discrete @ - left fourth toe Character Of Pain: Aching Associated Signs And Symptoms: Positive: Bruising. Negative: Swelling, Redness Aggravating Factor(s): Standing, Ambulation Alleviating Factor(s): Rest Able to Bear Weight: Yes - Risk Factors Gout Risk Factors: Negative DVT Risk Factors: Negative Septic Arthritis Risk Factor: Negative - Allergies/Home Medications Allergies/Adverse Reactions: Allergies Allergy/AdvReac Type Severity Reaction Status Date / Time No Known Allergies Allergy Verified 04/04/19 14:05 PMH/Surg Hx/FS Hx/Imm Hx Previously Healthy: Yes Endocrine/Hematology History: Denies: Hx Diabetes, Hx Thyroid Disease Cardiovascular History: Denies: Hx Hypercholesterolemia, Hx Hypertension, Hx Pacemaker/ICD, Hx Peripheral Vascular Disease Respiratory History: Denies: Hx Asthma History: Denies: Hx Renal Disease Musculoskeletal History: Denies: Hx Arthritis, Hx Rheumatoid Arthritis, Hx Osteoporosis Sensory History: Denies: Hx Cataracts, Hx Contacts or Glasses, Hx Glaucoma, Hx Hearing Aid Opthamlomology History: Denies: Hx Cataracts, Hx Contacts or Glasses, Hx Glaucoma Neurological History: Denies: Hx Headaches, Hx Seizures, Hx Transient Ischemic Attacks (TIA) Psychiatric History: Denies: Hx Anxiety, Hx Depression, Hx Panic Disorder - Surgical History Surgery Procedure, Year, and Place: RHINOPLASTY ; - Immunization History Hx Pertussis Vaccination: No Immunizations Up to Date: Yes Infectious Disease History: No Infectious Disease History: Denies: Traveled Outside the [place] in Last 30 Days - Family History Known Family History: Positive: Cardiac Disease, Hypertension, Diabetes, Other - HLD - Social History Occupation: Employed Full-time Lives: With Family Alcohol Use: None Hx Substance Use: No Substance Use Type: Reports: None Smoking Status (MU): Never Smoked Tobacco Review of Systems Constitutional: Negative Negative: Fever, Chills, Fatigue, Skin Diaphoresis Negative: Palpitations, Chest Pain Negative: Shortness Of Breath, Cough Genitourinary: Negative Positive: see HPI Positive: Arthralgia - left fourth toe Skin: Negative Neurological: Negative All Other Systems Reviewed And Are Negative: Yes Physical Exam Triage Information Reviewed: Yes Vital Signs On Initial Exam: Initial Vitals Temp Pulse Resp BP Pulse Ox 97.8 F 104 20 150/82 98 04/04/19 14:02 04/04/19 14:02 04/04/19 14:02 04/04/19 14:02 04/04/19 14:02 Vital Signs Reviewed: Yes Appearance: Positive: Well-Appearing, Well-Nourished Skin: Positive: Warm, Skin Color Reflects Adequate Perfusion, Other - left fourth toe pain/ecchymosis and erythema Eyes: Positive: EOMI, ROSITA, Conjunctiva Clear Neck: Positive: Supple, No Lymphadenopathy Respiratory/Lung Sounds: Positive: Clear to Auscultation, Breath Sounds Present Cardiovascular: Positive: Pulses are Symmetrical in both Upper and Lower Extremities Musculoskeletal: Positive: Pain @ - left fourth toe Neurological: Positive: Speech Normal Diagnostics - Vital Signs Vital Signs Temp Pulse Resp BP Pulse Ox 04/04/19 15:43 98 F 69 16 121/76 99 04/04/19 14:02 97.8 F 104 20 150/82 98 - Laboratory Lab Statement: Any lab studies that have been ordered have been reviewed, and results considered in the medical decision making process. Lower Extremity Course/Dx - Course Course Of Treatment: Physical examination, there is discoloration of ecchymosis and erythema to the fourth left toe without erythema or ecchymosis otherwise. He remains ambulatory. Denies any numbness or tingling. X-ray obtained: IMPRESSION: FINDINGS MOST CONSISTENT WITH A NONDISPLACED FRACTURE AT THE DORSAL BASE OF. THE DISTAL PHALANX. Homar taped the toe. He is given orthopedic follow-up if symptoms persist or worsen. He remained stimulatory. - Diagnoses Provider Diagnoses: Fracture of fourth toe, left, closed Discharge - Sign-Out/Discharge Documenting (check all that apply): Patient Departure Patient Received Moderate/Deep Sedation with Procedure: No - Discharge Plan Condition: Stable Disposition: HOME Patient Education Materials: Toe Fracture (ED) Referrals: Matthew Perry MD [Medical Doctor] - Shakira Parkinson NP [Primary Care Provider] - Additional Instructions: Homar tape the 2 toes together x 3-5 weeks If you develop worsening symptoms, you may return to the ED Follow up with ortho for any changing/worsening symptoms - I have given you a follow up if needed - Billing Disposition and Condition Condition: STABLE Disposition: Home - Attestation Statements Provider Attestation: I was available for consult. This patient was seen by the [facility]. The patient was not presented to, seen by, or examined by me. -Justine
== END 2019-04-04 15:43 | disposition home or self-care (01) ==
LOC: ED 13:59
DX: S92.535A Nondisplaced fracture of distal phalanx of left lesser toe(s), initial encounter for closed fracture (principal); W22.8XXA Striking against or struck by other objects, initial encounter
CPT/HCPCS: 99281

== ENCOUNTER 2019-05-11 08:46 | Emergency (ER) | payer OTHER ==
--- NOTE | 2019-05-11 09:53 | ED ---
Upper Extremity Pain - HPI Summary HPI Summary: Patient is a 28-year-old male who presents emergency department for right hand injury that occurred today at work. 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 Symptoms are mild in severity. Touching and using him makes symptoms worse. Rest makes symptoms better. - History of Current Complaint Chief Complaint: EDExtremityUpper Stated Complaint: RT HAND INJURY PER PT Time Seen by Provider: 05/11/19 08:52 Hx Obtained From: Patient - Allergies/Home Medications Allergies/Adverse Reactions: Allergies Allergy/AdvReac Type Severity Reaction Status Date / Time No Known Allergies Allergy Verified 05/11/19 08:50 Home Medications: Home Medications tiZANidine TAB* [Zanaflex TAB*] 4 mg PO BEDTIME 05/11/19 [History Confirmed 10/18] PMH/Surg Hx/FS Hx/Imm Hx Previously Healthy: Yes Endocrine/Hematology History: Denies: Hx Diabetes, Hx Thyroid Disease Cardiovascular History: Denies: Hx Hypercholesterolemia, Hx Hypertension, Hx Pacemaker/ICD, Hx Peripheral Vascular Disease Respiratory History: Denies: Hx Asthma History: Denies: Hx Renal Disease Musculoskeletal History: Denies: Hx Arthritis, Hx Rheumatoid Arthritis, Hx Osteoporosis Sensory History: Denies: Hx Cataracts, Hx Contacts or Glasses, Hx Glaucoma, Hx Hearing Aid Opthamlomology History: Denies: Hx Cataracts, Hx Contacts or Glasses, Hx Glaucoma Neurological History: Denies: Hx Headaches, Hx Seizures, Hx Transient Ischemic Attacks (TIA) Psychiatric History: Denies: Hx Anxiety, Hx Depression, Hx Panic Disorder - Surgical History Surgery Procedure, Year, and Place: RHINOPLASTY ; Infectious Disease History: No Infectious Disease History: Denies: Traveled Outside the [place] in Last 30 Days - Family History Known Family History: Positive: Cardiac Disease, Hypertension, Diabetes, Other - HLD - Social History Occupation: Employed Full-time Lives: With Family Alcohol Use: Occasionally Hx Substance Use: No Substance Use Type: Reports: None Smoking Status (MU): Never Smoked Tobacco Review of Systems Positive: Other - right hand pain Neurological: Negative Negative: Weakness, Paresthesia, Numbness All Other Systems Reviewed And Are Negative: Yes Physical Exam Triage Information Reviewed: Yes Vital Signs On Initial Exam: Initial Vitals Temp Pulse Resp BP Pulse Ox 97.3 F 79 16 134/72 97 05/11/19 08:48 05/11/19 08:48 05/11/19 08:48 05/11/19 08:48 05/11/19 08:48 Vital Signs Reviewed: Yes Appearance: Positive: Well-Appearing - pt. sitting on bed in NAD. Skin: Positive: Warm, Dry Head/Face: Positive: Normal Head/Face Inspection Eyes: Positive: Normal, EOMI Neck: Positive: Supple Musculoskeletal: Positive: Other - Small area of ecchymosis and pain to right 3rd MCP joint. Full ROM of digits with pain. No breaks in the skin. Neurological: Positive: Normal, CN Intact II-III Psychiatric: Positive: Affect/Mood Appropriate Diagnostics - Vital Signs Vital Signs Temp Pulse Resp BP Pulse Ox 05/11/19 08:48 97.3 F 79 16 134/72 97 - Laboratory Lab Statement: Any lab studies that have been ordered have been reviewed, and results considered in the medical decision making process. Course/Dx - Course Course Of Treatment: Patient presenting with minor hand injury. X-rays negative for fracture dislocation, reading per radiology. Escobar wrap placed for comfort. Advised ice and elevation. Tylenol or Motrin for pain as directed. Will follow-up with PCP if pain persists. Patient understands and agrees with plan. - Diagnoses Differential Diagnosis/HQI/PQRI: Positive: Contusion, Fracture (Closed), Hematoma, Strain, Sprain Provider Diagnoses: Hand contusion Discharge - Sign-Out/Discharge Documenting (check all that apply): Patient Departure Patient Received Moderate/Deep Sedation with Procedure: No - Discharge Plan Condition: Good Disposition: HOME Patient Education Materials: Contusion in Adults (ED) Referrals: Shakira Parkinson FIRE MANAGEMENT OFFICER [Primary Care Provider] - Additional Instructions: Follow up with PCP within one week if pain persist Ice and elevate Tylenol or Motrin for pain as directed Return to ER if symptoms change or worsen - Billing Disposition and Condition Condition: GOOD Disposition: Home
[2019-05-11 10:29] VITALS: BP 133/71
== END 2019-05-11 10:28 | disposition home or self-care (01) ==
LOC: ED 08:46
DX: S60.221A Contusion of right hand, initial encounter (principal); W23.0XXA Caught, crushed, jammed, or pinched between moving objects, initial encounter; Y92.810 Car as the place of occurrence of the external cause; Y99.0 Civilian activity done for income or pay
CPT/HCPCS: 99282

== ENCOUNTER 2019-07-27 14:40 | Emergency (ER) | payer OTHER ==
[2019-07-27] MEDS ORDERED: Cyclobenzaprine TAB* 10 MG PO ONE (15:41)
[2019-07-27] MEDS ORDERED: Ketorolac INJ* 30 MG/ML 1 ML VIAL IM ONE (15:41)
--- NOTE | 2019-07-27 15:45 | ED ---
Back Pain - HPI Summary HPI Summary: 28-year-old male presents with back injury today. He states that he ended up slipped and falling on the concrete. He states he landed on his lower back. He has been having lower back pain. Does have a history of back pain in the same area. States it is more intense than normal. Admits to spasms in his back. Did have pain into his legs that has resolved. No urinary symptoms. no loss of bowel or bladder. No saddle anesthesias. Did not take anything for the pain. Has no medical conditions. States pain is 8 out of 10. - History of Current Complaint Chief Complaint: EDBackInjuryPain Stated Complaint: BACK INJ PER PT Time Seen by Provider: 07/27/19 15:11 Pain Intensity: 8 - Allergies/Home Medications Allergies/Adverse Reactions: Allergies Allergy/AdvReac Type Severity Reaction Status Date / Time No Known Allergies Allergy Verified 07/27/19 15:04 PMH/Surg Hx/FS Hx/Imm Hx Endocrine/Hematology History: Denies: Hx Diabetes, Hx Thyroid Disease Cardiovascular History: Denies: Hx Hypercholesterolemia, Hx Hypertension, Hx Pacemaker/ICD, Hx Peripheral Vascular Disease Respiratory History: Denies: Hx Asthma History: Denies: Hx Renal Disease Musculoskeletal History: Denies: Hx Arthritis, Hx Rheumatoid Arthritis, Hx Osteoporosis Sensory History: Denies: Hx Cataracts, Hx Contacts or Glasses, Hx Glaucoma, Hx Hearing Aid Opthamlomology History: Denies: Hx Cataracts, Hx Contacts or Glasses, Hx Glaucoma Neurological History: Denies: Hx Headaches, Hx Seizures, Hx Transient Ischemic Attacks (TIA) Psychiatric History: Denies: Hx Anxiety, Hx Depression, Hx Panic Disorder - Surgical History Surgery Procedure, Year, and Place: RHINOPLASTY ; - Immunization History Immunizations Up to Date: Yes Infectious Disease History: No Infectious Disease History: Denies: Traveled Outside the [place] in Last 30 Days - Family History Known Family History: Positive: Cardiac Disease, Hypertension, Diabetes, Other - HLD - Social History Alcohol Use: Occasionally Hx Substance Use: No Substance Use Type: Reports: None Smoking Status (MU): Never Smoked Tobacco Review of Systems Negative: Fever Negative: Chest Pain Negative: Shortness Of Breath Positive: Myalgia - back pain All Other Systems Reviewed And Are Negative: Yes Physical Exam Triage Information Reviewed: Yes Vital Signs On Initial Exam: Initial Vitals Temp Pulse Resp BP Pulse Ox 98.4 F 90 18 142/79 95 07/27/19 15:02 07/27/19 15:02 07/27/19 15:02 07/27/19 15:02 07/27/19 15:02 Vital Signs Reviewed: Yes Appearance: Positive: Well-Appearing Skin: Positive: Warm, Dry Head/Face: Positive: Normal Head/Face Inspection Eyes: Positive: Normal, Conjunctiva Clear ENT: Positive: Pharynx normal Respiratory/Lung Sounds: Positive: Clear to Auscultation, Breath Sounds Present Cardiovascular: Positive: Normal, RRR Abdomen Description: Positive: Nontender, Soft Bowel Sounds: Positive: Present Musculoskeletal: Positive: Limited @ - back, Other - tenderness lower back, neg SLR, good pulses Neurological: Positive: Normal Psychiatric: Positive: Normal Diagnostics - Vital Signs Vital Signs Temp Pulse Resp BP Pulse Ox 07/27/19 15:02 98.4 F 90 18 142/79 95 - Laboratory Lab Statement: Any lab studies that have been ordered have been reviewed, and results considered in the medical decision making process. - Radiology back Radiology Interpretation Completed By: Radiologist Summary of Radiographic Findings: IMPRESSION: Unremarkable lumbosacral spine series. Back Pain Course/Dx - Course Course Of Treatment: 28-year-old male presents with back injury today. He states that he ended up slipped and falling on the concrete. He states he landed on his lower back. He has been having lower back pain. Does have a history of back pain in the same area. States it is more intense than normal. Admits to spasms in his back. Did have pain into his legs that has resolved. No urinary symptoms. no loss of bowel or bladder. No saddle anesthesias. Did not take anything for the pain. Has no medical conditions. States pain is 8 out of 10. On exam tenderness lower back. Neurovascular intact. X-ray shows no fracture. patient has muscle relaxer at home. will place on steriod. gave referral to occupational health. patient understand and agrees with plan. - Diagnoses Differential Diagnosis/HQI/PQRI: Positive: Fracture Provider Diagnoses: Back pain Discharge ED - Sign-Out/Discharge Documenting (check all that apply): Patient Departure Patient Received Moderate/Deep Sedation with Procedure: No - Discharge Plan Condition: Good Disposition: HOME Patient Education Materials: Back Pain (ED) Forms: *Work Release Referrals: Shakira Parkinson NP [Primary Care Provider] - Tien Barth MD [Medical Doctor] - Additional Instructions: Follow directions on package for Medrol pack Use ibuprofen or Tylenol for pain every 6 hours ice/heat area, move as much as possible Follow up with occupational health within 5 days Return to ED if develop any new or worsening symptoms - Billing Disposition and Condition Condition: GOOD Disposition: Home
[2019-07-27 16:58] VITALS: BP 133/75
== END 2019-07-27 17:00 | disposition home or self-care (01) ==
LOC: ED 14:40
DX: M54.9 Dorsalgia, unspecified (principal); W01.10XA Fall on same level from slipping, tripping and stumbling with subsequent striking against unspecified object, initial encounter; Y92.9 Unspecified place or not applicable
CPT/HCPCS: 72110; 96372; 99282; A9270-GY; J1885

== ENCOUNTER 2019-12-09 09:05 | Emergency (ER) | payer SELFPAY ==
[2019-12-09 09:40] LABS: Influenza B Molecular POSITIVE (Negative)
[2019-12-09] MEDS ORDERED: GuaiFENesin DM sugar free 100mg/10mg 5 ML UDC PO ONE (11:09)
[2019-12-09] MEDS ORDERED: Ibuprofen TAB* 600 MG PO ONE (11:09)
[2019-12-09] MEDS ORDERED: Saline NASAL SPRAY 0.65%* BTL BOTH NARES ONE (11:09)
--- NOTE | 2019-12-09 11:17 | ED ---
Influenza-Like Illness - HPI Summary HPI Summary: This patient is a 29-year-old male who is otherwise healthy presenting to the ED with a 3 day history of cough, congestion, nasal drainage, nasal congestion, fevers, sweats, chills, headache and body aches. He is unsure if he has had flu exposure. Patient works in food cashier. He states symptoms began 3 days ago with a scratchy throat and developed into worsening symptoms. Fever was highest at home at 105 after getting out of the shower. His mother states this reduced to 101 shortly after. He states he is having fatigue. Has been using NyQuil and DayQuil with some relief. States every time he receives the flu vaccination, he gets "the flu." - History of Current Complaint Chief Complaint: EDFluSymptoms Time Seen by Provider: 12/09/19 09:18 Hx Obtained From: Patient, Family/Certified Real Estate Appraiser Onset/Duration: Sudden Onset Severity: Moderate Associated Signs & Symptoms: Fever - 104, T Max, F/C, Myalgia, Cough, Sore Throat, Nasal Congestion, Headache Related Hx: Possible Flu/Infectious Exposure - Risk Factors Influenza Risk Factors: Negative - Allergy/Home Medications Allergies/Adverse Reactions: Allergies Allergy/AdvReac Type Severity Reaction Status Date / Time No Known Allergies Allergy Verified 12/09/19 09:10 PMH/Surg Hx/FS Hx/Imm Hx Previously Healthy: Yes Endocrine/Hematology History: Denies: Hx Diabetes, Hx Thyroid Disease Cardiovascular History: Denies: Hx Hypercholesterolemia, Hx Hypertension, Hx Pacemaker/ICD, Hx Peripheral Vascular Disease Respiratory History: Denies: Hx Asthma History: Denies: Hx Renal Disease Musculoskeletal History: Denies: Hx Arthritis, Hx Rheumatoid Arthritis, Hx Osteoporosis Sensory History: Denies: Hx Cataracts, Hx Contacts or Glasses, Hx Glaucoma, Hx Hearing Aid Opthamlomology History: Denies: Hx Cataracts, Hx Contacts or Glasses, Hx Glaucoma Neurological History: Denies: Hx Headaches, Hx Seizures, Hx Transient Ischemic Attacks (TIA) Psychiatric History: Denies: Hx Anxiety, Hx Depression, Hx Panic Disorder - Surgical History Surgery Procedure, Year, and Place: RHINOPLASTY ; - Immunization History Hx Pertussis Vaccination: No Immunizations Up to Date: Yes Infectious Disease History: No Infectious Disease History: Denies: Traveled Outside the [place] in Last 30 Days - Family History Known Family History: Positive: Cardiac Disease, Hypertension, Diabetes, Other - HLD - Social History Occupation: Employed Full-time Lives: With Family Alcohol Use: Occasionally Hx Substance Use: No Substance Use Type: Reports: Marijuana Smoking Status (MU): Light Every Day Tobacco Smoker Review of Systems Positive: Fever, Chills, Fatigue, Skin Diaphoresis Negative: Drainage Positive: Sore Throat, Nasal Discharge. Negative: Ear Ache Negative: Palpitations, Chest Pain Positive: Cough. Negative: Shortness Of Breath Negative: Abdominal Pain, Vomiting, Diarrhea, Nausea Positive: Myalgia Negative: Rash, Bruising Positive: Headache All Other Systems Reviewed And Are Negative: Yes Physical Exam Triage Information Reviewed: Yes Vital Signs On Initial Exam: Initial Vitals Temp Pulse Resp BP Pulse Ox 100.8 F 84 20 130/80 99 12/09/19 09:07 12/09/19 09:07 12/09/19 09:07 12/09/19 09:07 12/09/19 09:07 Vital Signs Reviewed: Yes Appearance: Positive: Ill-Appearing Skin: Positive: Diaphoretic Head/Face: Positive: Normal Head/Face Inspection Eyes: Positive: EOMI, ROSITA, Conjunctiva Clear Neck: Positive: Supple, Nontender, No Lymphadenopathy Respiratory/Lung Sounds: Positive: Clear to Auscultation, Breath Sounds Present Cardiovascular: Positive: Pulses are Symmetrical in both Upper and Lower Extremities, Tachycardia Musculoskeletal: Positive: Strength/ROM Intact Neurological: Positive: Speech Normal Psychiatric: Positive: Normal, Affect/Mood Appropriate AVPU Assessment: Alert Procedures - Sedation Patient Received Moderate/Deep Sedation with Procedure: No Diagnostics - Vital Signs Vital Signs Temp Pulse Resp BP Pulse Ox 12/09/19 09:07 100.8 F 84 20 130/80 99 - Laboratory Lab Results: Lab Results 12/09/19 Range/Units 09:10 Influenza A (Rapid) Not Reportable Influenza B (Rapid) Positive A (Negative) Lab Statement: Any lab studies that have been ordered have been reviewed, and results considered in the medical decision making process. Flu Symptom Course/Dx - Course Course Of Treatment: This patient is evaluated for cough, congestion, body aches , fevers, sweats, chills. Temperature was highest at home at 105. On arrival into the ED, patient appears ill. Temperature on arrival was 100.8. Last Tylenol intake was approximately 3 hours COOK STARCH. He has not been taking ibuprofen or other plvz-ohr-boiepir medications other than NyQuil and DayQuil. Patient states his symptoms have been present 3 days. Patient does appear ill and somewhat diaphoretic. Lungs CTA, RRR, no cervical LAD. No pharyngeal erythema. No maxillary sinus tenderness. Influenza B-positive. As patient's symptoms have been present for over 3 days, he will not be given Tamiflu at this time. He was given Robitussin with codeine, nasal saline spray and ibuprofen in the ED. He will continue his NyQuil and DayQuil at home intermittently with ibuprofen as well as he is given a prescription for Tessalon and albuterol inhaler. Out of work x 4 days. - Diagnoses Differential Diagnosis/HQI/PQRI: Positive: Influenza Provider Diagnoses: Influenza B Discharge ED - Sign-Out/Discharge Documenting (check all that apply): Patient Departure - Discharge Plan Condition: Stable Disposition: HOME Prescriptions: Albuterol HFA INHALER* [Ventolin HFA Inhaler*] 1 puff INH Q4H PRN #1 mdi PRN Reason: Shortness Of Breath Benzonatate CAP* [Tessalon CAP*] 100 mg PO TID #21 cap Patient Education Materials: Influenza (ED) Forms: *Work Release Referrals: Shakira Parkinson, OUTSIDE PHYSICAL DAMAGE APPRAISER [Primary Care Provider] - Additional Instructions: Tylenol and ibuprofen can be used intermittently every 3 hours Do not take Tylenol if you're taking NyQuil or DayQuil, you will use these in place of the Tylenol Drink plenty of water and use Gatorade as a supplement Nasal saline sprays to open up the nasal passageways Tessalon up to 3 times daily for cough, you can also use [id number] Robitussin for additional cough suppression Rest as much as possible Out of work 3 days - Billing Disposition and Condition Condition: STABLE Disposition: Home
[2019-12-09 11:37] VITALS: BP 136/66
== END 2019-12-09 11:36 | disposition home or self-care (01) ==
LOC: ED 09:05
DX: J10.1 Influenza due to other identified influenza virus with other respiratory manifestations (principal); F17.200 Nicotine dependence, unspecified, uncomplicated
CPT/HCPCS: 99282; A9270-GY